=== PATIENT | male | born 1995 | race Caucasian/White ===

== ENCOUNTER 2024-08-24 20:30 | Emergency (ER) | payer BC ==
[2024-08-24 20:47] VITALS: TEMP 97.7
--- NOTE | 2024-08-24 21:13 | ED ---
Head Injury HPI - General Chief complaint: Fall Stated complaint: Fall-Head Injury Time Seen by Provider: 08/24/24 20:48 Source: patient, RN notes reviewed Mode of arrival: wheelchair Limitations: no limitations - History of Present Illness Initial comments: This is a 29-year-old male who presents to the emergency department for a fall. Patient tripped on his stairs and fell down at least 3 steps. He ended up hitting his head in the process. He has a laceration to the top of his forehead. Tetanus vaccine is up-to-date. Denies any loss of consciousness. Denies sustaining any additional injuries. All of the pain is on his head. Patient's significant other at bedside states that he does not seem to be acting completely like himself but is not quite sure how to explain it. States that other than the headache he feels okay. Complaint: head injury, fall - Related Data Allergies/Adverse reactions: Allergies Allergy/AdvReac Type Severity Reaction Status Date / Time No Known Allergies Allergy Verified 08/24/24 20:47 Review of Systems ROS Statement: Those systems with pertinent positive or pertinent negative responses have been documented in the HPI. ROS Other: All systems not noted in ROS Statement are negative. Past Medical History Past Medical History: No Reported History History of Any Multi-Drug Resistant Organisms: None Reported Past Surgical History: No Surgical Hx Reported Past Psychological History: Anxiety Smoking Status: Vaper Past Alcohol Use History: Occasional Past Drug Use History: Marijuana General Exam Limitations: no limitations General appearance: alert, in no apparent distress Head exam: Present: other (3 to 4 cm laceration to the top of the head with active bleeding) Eye exam: Present: normal appearance, PERRL, EOMI. Absent: scleral icterus, conjunctival injection, periorbital swelling Respiratory exam: Present: normal lung sounds bilaterally. Absent: respiratory distress, wheezes, rales, rhonchi, stridor Cardiovascular Exam: Present: regular rate, normal rhythm, normal heart sounds. Absent: systolic murmur, diastolic murmur, rubs, gallop, clicks Neurological exam: Present: alert, oriented X3, CN II-XII intact Psychiatric exam: Present: normal affect, normal mood Course Vital Signs 08/24/24 08/24/24 20:41 23:48 Temperature 97.7 F Pulse Rate 90 88 Respiratory 18 16 Rate Blood Pressure 124/83 124/81 O2 Sat by Pulse 99 98 Oximetry Procedures - Laceration Laceration #1 Consent Obtained: verbal consent Indication: laceration Site: scalp Size (cm): 4 Description: linear Depth: simple, single layer Type of Sutures: other (Ruso) Number of Sutures: 3 Medical Decision Making - Medical Decision Making This is a 29-year-old male who presents to the emergency department for a head injury. Was pt. sent in by a medical professional or institution? @ -No Did you speak to anyone other than the patient for history? @ -Significant other expressed her concern that he was not acting like himself. Did you review nursing and triage notes? @ -Yes, and I agree, it is accurate with regards to the patient's symptoms. Were old charts reviewed? @ -No Differential Diagnosis? @ -Differential Diagnosis Head Injury: Contusion, hematoma, intracranial hemorrhage, skull fracture, whiplash, concussion, this is not meant to be an all-inclusive list. EKG interpreted by me (3pts min.)? @ -EKG interpreted by me demonstrating the following: Sinus rhythm. Ventricular rate 72 bpm, OR interval 167 ms, QRS duration 107 ms, QTc 397 ms. X-rays interpreted by me (1pt min.)? @ -Not obtained CT interpreted by me (1pt min.)? @ -Computed tomography scan of the brain and c-spine obtained. My interpretation identifies mild thickening along the falx posterior. U/S interpreted by me (1pt. min.)? @ -Not obtained What testing was considered but not performed? (CT, X-rays, U/S, labs)? Why? @ -None What meds were considered but not given? Why? @ -None Did you discuss the management of the patient with other professionals? @ -Yes, Dr. Tripp at [facility] who accepts the patient for ED to ED transfer. Did you reconcile home meds? @ -No Was smoking cessation discussed for >3mins.? @ -No Was critical care preformed (if so, how long)? @ -No Were there social determinants of health that impacted care today? How? (Homelessness, low income, unemployed, alcoholism, drug addiction, transportation, low edu. Level, literacy, decrease access to med. care, half-way, rehab)? @ -No Was there de-escalation of care discussed even if they declined? (Discuss DNR or withdrawal of care, Hospice)? @ -No What co-morbidities impacted this encounter? (DM, HTN, Smoking, COPD, CAD, Cancer, CVA, Hep., AIDS, mental health diagnosis, sleep apnea, morbid obesity)? @ -None Was patient admitted / discharged? @ -Transferred. The laceration on his head was cleansed and repaired with dayton. Tetanus vaccine is already up-to-date. CT scan of the brain and C- spine obtained revealing mild thickening of the falx posterior that may represent a trace amount of subdural hemorrhage versus patient anatomy. C- collar remained in place. Given the possibility of subdural hemorrhage, advised the patient that he needs to be transferred to a tertiary facility with neurosurgery available. Patient transferred to [facility] ED via EMS in stable condition. Dr. Tripp is the accepting provider for ED to ED transfer. EKG and lab work was ordered prior to transfer. Lab work found to be unremar kable. Case discussed with ED attending Dr. Myles. Undiagnosed new problem with uncertain prognosis? @ -None Drug Therapy requiring intensive monitoring for toxicity (Heparin, Nitro, Insulin, Cardizem)? @ -None Were any procedures done? @ -Laceration repair with day[place] Diagnosis/symptom? @ -Fall, laceration, possible subdural hemorrhage Acute, or Chronic, or Acute on Chronic? @ -Acute Uncomplicated (without systemic symptoms) or Complicated (systemic symptoms)? @ -Uncomplicated Side effects of treatment? @ -None Exacerbation, Progression, or Severe Exacerbation] @ -Not applicable Poses a threat to life or bodily function? @ -Yes, subdural hemorrhage can be life-threatening - Lab Data Result diagrams: 08/24/24 22:55 08/24/24 22:55 Lab Results 08/24/24 08/24/24 08/24/24 Range/Units 22:55 22:55 22:55 WBC 10.2 (3.8-10.6) k/uL RBC 5.27 (4.30-5.90) m/uL Hgb 16.2 (13.0-17.5) gm/dL Hct 48.5 (39.0-53.0) % MCV 92.1 (80.0-100.0) fL MCH 30.7 (25.0-35.0) pg MCHC 33.3 (31.0-37.0) g/dL RDW 13.0 (11.5-15.5) % Plt Count 371 (150-450) k/uL MPV 6.4 Neutrophils % 64 % Lymphocytes % 28 % Monocytes % 5 % Eosinophils % 1 % Basophils % 1 % Neutrophils # 6.5 (1.3-7.7) k/uL Lymphocytes # 2.8 (1.0-4.8) k/uL Monocytes # 0.5 (0-1.0) k/uL Eosinophils # 0.1 (0-0.7) k/uL Basophils # 0.1 (0-0.2) k/uL PT 12.0 (10.0-12.5) sec INR 1.1 (<1.2) APTT 25.7 (22.0-30.0) sec Sodium 141 (137-145) mmol/L Potassium 4.4 (3.5-5.1) mmol/L Chloride 104 (98-107) mmol/L Carbon Dioxide 25 (22-30) mmol/L Anion Gap 12 mmol/L BUN 9 (9-20) mg/dL Creatinine 0.80 (0.66-1.25) mg/dL Est GFR (CKD-EPI)AfAm >90 (>60 ml/min/1.73 sqM) Est GFR (CKD-EPI)NonAf >90 (>60 ml/min/1.73 sqM) Glucose 110 H (74-99) mg/dL Calcium 9.6 (8.4-10.2) mg/dL Total Bilirubin 1.2 (0.2-1.3) mg/dL AST 32 (17-59) U/L ALT 41 (4-49) U/L Alkaline Phosphatase 55 (38-126) U/L Total Protein 8.1 (6.3-8.2) g/dL Albumin 5.1 H (3.5-5.0) g/dL - Radiology Data Radiology results: report reviewed, image reviewed Disposition Clinical Impression: Fall, Laceration, Subdural hematoma Disposition: OTHER INSTITUTION NOT DEFINED Condition: Undetermined Referrals: Iron Lee DO [Primary Care Provider] - 1-2 days - Out of Hospital Transfer - Req. Specs Out of Hospital Transfer - Requested Specifics: Other Emergency Center ([facility])
[2024-08-24] MEDS: LIDOCAINE/EPINEPHR/TETRACAINE 5 ML BOTTLE TOPICAL ONE (21:15)
[2024-08-24] MEDS: ACETAMINOPHEN TAB 500 MG TAB PO STA (21:16)
--- NOTE | 2024-08-24 22:12 | CT ---
EXAMINATION TYPE: CT brain cspine wo con CT DLP: 1533.4 mGycm, Automated exposure control for dose reduction was used. DATE OF EXAM: 08/24/2024 9:16 PM COMPARISON: None. CLINICAL INDICATION:Male, 29 years old with history of Fall, head injury; Patient reports fall down a pprox 3 stairs. Patient hit head and has lac to forehead. TECHNIQUE: Brain: Multiple axial CT images of the brain were obtained without IV contrast. Cspine: Axial CT images from the skull base to the inferior aspect of T2 we obtained without intraven ous contrast. Coronal and sagittal reformatted images were also reviewed. . FINDINGS: Brain: Extra-axial spaces: Mild thickening of the falx posteriorly may represent trace amount of attenuated fluid. Ventricular system: Within normal limits Cerebral parenchyma: No acute intraparenchymal hemorrhage or mass effect. The irving-white junction is well differentiated. Cerebellum: Unremarkable. Mass effect: No evidence of midline shift. Intracranial vasculature: unremarkable Soft tissues: Small area of attenuation along the frontal soft tissues. Calvarium/osseous structures: No depressed skull fracture. Paranasal sinuses and mastoid air cells: Clear. Visualized orbits: Orbital contents are intact. Cervical spine: Fracture: None. Osseous structures: Unremarkable Vertebral alignment: Within normal limits. Spinal canal/Neural Foramina: No evidence of significant spinal canal narrowing. No evidence for sign ificant neural foraminal stenosis. Neck soft tissues: Prevertebral soft tissues are within normal limits. Other: The airway is patent. The lung apices are clear. Attenuation in the upper mediastinum may rela te to remnant thymic tissue. IMPRESSION: 1. Mild thickening of the falx posterior may represent a trace amount of subdural hemorrhage versus p atient's anatomy. Given the history of trauma and no prior imaging recommend an additional noncontras carlito head CT in 6 to 8 hours to assess for stability of this finding. No other areas of suspected intr acranial hemorrhage or acute process. 2. Area of attenuation along the frontal soft tissues is concerning for laceration. Correlate with ex am. 3. No evidence of acute cervical spine fracture. Findings discussed with Estella Woodall RN by Dr. Herrera over the phone at 10:05 pm on 08/24/2024 [facility], , 08/24/2024 10:09 PM
[2024-08-24] MEDS: LORazepam 1 MG TAB PO STA (23:03)
[2024-08-24 23:26] LABS: Basophils # (A) 0.1 k/uL (0-0.2); Basophils % (A) 1 %; Eosinophils # (A) 0.1 k/uL (0-0.7); Eosinophils % (A) 1 %; HCT 48.5 % (39.0-53.0); HGB 16.2 gm/dL (13.0-17.5); Lymphocytes # (A) 2.8 k/uL (1.0-4.8); Lymphocytes % (A) 28 %; MCH 30.7 pg (25.0-35.0); MCHC 33.3 g/dL (31.0-37.0); MCV 92.1 fL (80.0-100.0); Mean Platelet Volume 6.4; Monocytes # (A) 0.5 k/uL (0-1.0); Monocytes % (A) 5 %; Neutrophils # (A) 6.5 k/uL (1.3-7.7); Neutrophils % (A) 64 %; Platelet Count 371 k/uL (150-450); RBC 5.27 m/uL (4.30-5.90); WBC 10.2 k/uL (3.8-10.6)
[2024-08-24 23:39] LABS: ALT 41 U/L (4-49); AST 32 U/L (17-59); African American GFR (CKD) >90 (>60 ml/min/1.73 sqM); Albumin 5.1 g/dL (3.5-5.0); Alkaline Phosphatase 55 U/L (38-126); Anion Gap 12 mmol/L; Blood Urea Nitrogen 9 mg/dL (9-20); Calcium 9.6 mg/dL (8.4-10.2); Carbon Dioxide 25 mmol/L (22-30); Chloride 104 mmol/L (98-107); Glucose 110 mg/dL (74-99); Non-African American GFR(CKD) >90 (>60 ml/min/1.73 sqM); Potassium 4.4 mmol/L (3.5-5.1); Sodium 141 mmol/L (137-145); Total Bilirubin 1.2 mg/dL (0.2-1.3); Total Protein 8.1 g/dL (6.3-8.2)
[2024-08-24 23:43] LABS: INR 1.1 (<1.2); Partial Thromboplastin Time 25.7 sec (22.0-30.0)
[2024-08-24 23:50] VITALS: BP 124/81; PULSE 88; RESP 16
== END 2024-08-24 23:48 | disposition other institution (70) ==
LOC: EC 20:30
DX: S01.81XA Laceration without foreign body of other part of head, initial encounter (principal); S06.5XAA Traumatic subdural hemorrhage with loss of consciousness status unknown, initial encounter; F17.290 Nicotine dependence, other tobacco product, uncomplicated; W10.9XXA Fall (on) (from) unspecified stairs and steps, initial encounter
CPT/HCPCS: 12002; 36415; 70450; 72125; 80053; 85025; 85610; 85730; 93005; 99285

== ENCOUNTER 2024-09-10 12:30 | Day surgery (SDC) | payer BC ==
[~2024-09-10 12:30] MED LIST: HYDROmorphone 0.5 MG/0.5 ML SYRINGE IVP PRN; LIDOCAINE 1% (10MG/ML) FOR IV START INTRADERMA PRN; droPERidol 5 MG/2 ML VIAL IVP ONE
[2024-09-10 12:55] VITALS: TEMP 98.5
[2024-09-10] MEDS: IV FLUID CONTINUATION 1,000 ML IV ONE (12:57)
[2024-09-10] MEDS: LACTATED RINGERS 1,000 ML IV SCH (13:01)
[2024-09-10] MEDS: ACETAMINOPHEN TAB 500 MG TAB PO PRN (13:09)
[2024-09-10] MEDS: ONDANSETRON 4 MG/2 ML VIAL IVP ONE (13:10)
[2024-09-10] MEDS: DEXAMETHASONE SOD PHOSPHATE 4 MG/ML 1 ML VIAL IV ONE (13:10)
[2024-09-10] MEDS: HEPARIN SODIUM,PORCINE 5,000 UNIT/ML 1 ML VIAL SQ PRN (13:11)
[2024-09-10] MEDS: MIDAZOLAM 2 MG/2 ML VIAL IV ONE (13:11)
--- NOTE | 2024-09-10 14:06 | P.GSHP ---
History of Present Illness H&P Date: 09/10/24 Chief Complaint: Pilonidal cyst 29-year-old male seen in the office in July. Patient with complaints of intermittent inflammation had a pilonidal cyst since his teen years. Never required incision and drainage. Currently only mildly symptomatic today. Intermittent drainage described. Past Medical History Past Medical History: Asthma Additional Past Medical History / Comment(s): asthma as a child- no problems now History of Any Multi-Drug Resistant Organisms: None Reported Past Surgical History: No Surgical Hx Reported Additional Past Anesthesia/Blood Transfusion Reaction / Comment(s): no hx blood transfusion, no hx general anesthesia; pt states he requires more numbing at the dentist, as well as his father Smoking Status: Never smoker Medications and Allergies Home Medications Medication Instructions Recorded Confirmed Type LORazepam [Ativan] 0.5 mg PO BID PRN 09/07/24 09/10/24 History Allergies Allergy/AdvReac Type Severity Reaction Status Date / Time No Known Allergies Allergy Verified 09/10/24 12:50 Surgical - Exam Vital Signs Temp Pulse Resp BP Pulse Ox 98.5 F 95 16 146/90 97 09/10/24 12:50 09/10/24 12:50 09/10/24 12:50 09/10/24 12:50 09/10/24 12:50 Physical exam: General: Well-developed, well-nourished HEENT: Normocephalic, sclerae nonicteric Abdomen: Nontender, nondistended Extremities: No edema, apex of gluteal cleft with 1 cm area of induration and mild tenderness. This is the site of recurrent pain and symptoms. Sinus opening present midline gluteal cleft 7 cm inferior. Neuro: Alert and oriented Assessment and Plan (1) Pilonidal cyst Narrative/Plan: 29-year-old male with pilonidal cyst. Will proceed with pilonidal cystectomy at this time. Plan currently to proceed with closure and probable drain placement. Risks of bleeding, infection, poor healing, recurrence, numbness, scarring reviewed. He understands and wishes to proceed. Current Visit: Yes Status: Acute Code(s): L05.91 - PILONIDAL CYST WITHOUT ABSCESS SNOMED Code(s): 76618791
[2024-09-10] MEDS ORDERED: fentaNYL (PF) 50 MCG/ML 2 ML AMP ONE (14:17)
[2024-09-10] MEDS ORDERED: SUCCINYLCHOLINE CHLORIDE 200 MG/10 ML VIAL IV ONE (14:17)
[2024-09-10] MEDS ORDERED: GLYCOPYRROLATE 0.2 MG/ML 2 ML VIAL ONE (14:17)
[2024-09-10] MEDS ORDERED: PROPOFOL 10 MG/ML 20 ML VIAL IV ONE (14:17)
[2024-09-10] MEDS: BUPIVACAINE (PF) 0.25% 30 ML VIAL SQ ONE ×2 (14:50)
[2024-09-10] MEDS: metroNIDAZOLE-NS PMX 500 MG in SALINE 1 100ML.BAG IVPB PRN (14:51)
[2024-09-10] MEDS ORDERED: ONDANSETRON 4 MG/2 ML VIAL IVP PRN (15:38)
[2024-09-10] MEDS ORDERED: ACETAMINOPHEN TAB 325 MG TAB PO PRN (15:38)
[2024-09-10] MEDS ORDERED: HYDROmorphone 1 MG/ML 1 ML SYRINGE IVP PRN (15:38)
[2024-09-10] MEDS ORDERED: NALOXONE 0.4 MG/ML 1 ML VIAL IV PRN (15:38)
[2024-09-10] MEDS ORDERED: HYDROcodone/APAP 5-325MG 1 EACH TAB PO PRN (15:38)
--- NOTE | 2024-09-10 15:44 | P.OP ---
Date of Procedure: 09/10/24 Procedure(s) Performed: PREOPERATIVE DIAGNOSIS: Pilonidal cyst POSTOPERATIVE DIAGNOSIS: Same PROCEDURE: Pilonidal cystectomy SURGEON: Karly EBL: 25 cc ANESTHESIA: General COMPLICATIONS: None OPERATIVE PROCEDURE: Patient was placed prone on the operating table after general anesthesia was achieved. The gluteal crease was prepped and draped in usual sterile fashion after the patient was placed in the prone jackknife position. The patient had an area of induration at the apex of the gluteal cleft. A single sinus opening was present 7 cm inferior to that in the midline. There was slightly more induration to the left-hand side. [place] cleft lift technique was utilized. An elliptical incision was made to the left side of the buttock encompassing the medial aspect of the left buttock skin coming around just on the right side of the skin opening. Dissection through the subcutaneous tissues took place using electrocautery. The least amount of dissection took place that was required. No tunneling was seen in the periphery. Skin flap was raised to the right approximately 3 cm. The wound was then irrigated fully with saline. No bleeding was seen. A 10 round drain was placed above and below the deeper closure layer. This exited from the right side and sutured to the skin using a 3-0 nylon stitch. The subcutaneous tissues were reapproximated using interrupted 2-0 Vicryl sutures. The dermal layer was then reapproximated using interrupted 3-0 Vicryl sutures. The skin was then closed using a running 3-0 Monocryl suture. The incision was off the midline to the left by a distance of approximately 1cm. Marcaine solution plain was utilized as local anesthesia. Skin glue was used along the length of the skin closure. A sterile dressing was applied at that time. DISPOSITION: Stable to recovery room
[2024-09-10 16:21] VITALS: RESP 16
[2024-09-10 17:14] VITALS: BP 135/79; PULSE 89
[2024-09-10] MEDS ORDERED: KETOROLAC 15 MG/ML 1 ML VIAL IVP SCH (18:00)
== END 2024-09-10 17:30 | disposition home or self-care (01) ==
LOC: OR 12:30
PROVIDERS: ATTEND Surgery
DX: L05.01 Pilonidal cyst with abscess (principal)
CPT/HCPCS: 11770; 88304; J2250; J0330; J1644; J1100; J0690; J2405; J3010; J2704; J1836; J0665; J1596